=== PATIENT | male | born 1955 | race Caucasian/White ===

== ENCOUNTER → 2021-06-27 | Outpatient (CLI) | payer OTHER ==
[~2021-06-27] MED LIST: ASA81BEC PO; AZELASTINE205.5 MCG/ NARES; FLONASE 0.05%50 MCG NASAL; LISINOPRIL10 MG PO; LORAZEPAM 0.50.5 MG PO; SERTRALINE HCL25 M1 PO
== END ==
LOC: SJCVCIMAG 11:40
PROVIDERS: ATTEND Family Medicine
DX: I20.0 Unstable angina (principal); I10 Essential (primary) hypertension; R41.0 Disorientation, unspecified; F41.9 Anxiety disorder, unspecified; F98.8 Other specified behavioral and emotional disorders with onset usually occurring in childhood and adolescence; H53.8 Other visual disturbances; H26.9 Unspecified cataract; M54.2 Cervicalgia; F41.1 Generalized anxiety disorder; G47.00 Insomnia, unspecified; R06.00 Dyspnea, unspecified; R11.0 Nausea; R51.9 Headache, unspecified; Z72.89 Other problems related to lifestyle; Z79.899 Other long term (current) drug therapy; Z88.0 Allergy status to penicillin; Z88.8 Allergy status to other drugs, medicaments and biological substances

== ENCOUNTER → 2021-07-01 | Outpatient (CLI) | payer OTHER ==
[~2021-07-01] VITALS: Ht 177.8 cm; Wt 94.1 kg
[2021-07-01 10:23] LABS: HEMATOCRIT 41.9 % (42.0-52.0); MCH 32.6 pg (26.0-34.0); MCHC 33.4 g/dL (28.0-37.0); MCV 97.7 fL (80.0-100.0); RBC 4.29 mil/uL (4.50-6.00); RDW 13.3 % (10.5-14.5); WBC 4.2 thou/uL (4.0-11.0)
[2021-07-01 10:29] VITALS: BP 102/65
[2021-07-01 10:32] LABS: CALCIUM 8.5 mg/dL (8.5-10.1); POTASSIUM 4.4 mmol/L (3.5-5.1)
--- NOTE | 2021-07-14 14:59 | CATHLAB ---
[facility] [place] [address] INVASIVE PROCEDURE REPORT Name: NEIGHBORS,KYLER Grady Room #: REG ANGELLAMary Bajwa#: [id number] Admission: 07/01/21 Attend Phys: Sylvester Davies Discharge: Date of : 53 Report #: [id number] THIS REPORT FOR: cc: Art Perry Louis D. DO Lammoglia, Francisco J. MD ~ APPROVED REPORT Study performed: 07/01/2021 14:45:27 Patient Details Patient Status: Out-Patient Room #: The patient is a 66 year-old male Event Personnel Sylvester Davies Pasting Inspector, Mera Hill RTR Monitor, Teresa Garnett Wright, Sarah RN lump machine operator Performed Art Access - R femoral artery* Left Heart Cath w/or w/o Coronaries [id number] [facility] Hemostasis with Manual pressure 16033 Initial Mod Sed Same Phys/QHP Gr [id number] Mod Sed Same Phys/QHP Ea [id number], supervision of conscious sedation Indication Dyspnea, Positive stress test, Chest pain Procedure Narrative The Right Groin^ was infiltrated with 1% Lidocaine subcutaneous anesthesia. A PINNACLE 4FR Sheath #[id number] sheath was inserted into the RFA^. Coronary angiography was performed using coronary diagnostic catheters. The right coronary system was accessed and visualized with a JR4 catheter. The left coronary system was accessed and visualized with a JL4 catheter. The left ventricle was accessed and visualized with a PIGTAIL catheter. Hemostasis was obtained with manual pressure following sheath removal without any complications. The patient tolerated the procedure well and there were no complications associated with the procedure. There was no hematoma. Intraoperative Conscious Sedation Sedation start time: 14:59 Case end Time: 15:23 Versed 2 mg [facility] [address] [place] [address] INVASIVE PROCEDURE REPORT Name: KATERINEKYLER Grady Room #: [facility].#: [id number] Admission: 07/01/21 Attend Phys: Sylvester Batista Discharge: Date of : 53 Report #: [id number] Fluoro Time: 2.30 minutes Dose: DAP 5412.40 cGycm2 754 mGy Contrast Type and Amount: Omnipaque 40 ml Coronary Angiography The patient's coronary anatomy is left dominant. Diagnostic Cath Left Main Moderate-caliber vessel normal origin bifurcates left into descending left circumflex free of high-grade disease LAD Moderate caliber type III vessel with course in the interventricular sulcus giving rise to diagonal and septal branches. It courses in things towards the apex Hoxsie apex and terminates in posterior aspect of left ventricle. No significant obstructive lesions or irregularities are noted. Diagonal 1 Small caliber vessel coursing on the anterolateral wall free of high-grade disease Diagonal 2 Diminutive size vessel without significant lesion Diagonal 3 Diminutive size vessel without significant lesion Circumflex Moderate caliber dominant vessel which courses in the AV groove giving rise to a small first marginal branch continues on giving rise to a moderate caliber marginal branch and proceeds posteriorly giving rise to a cluster of posterior wall branches which serve as a posterior descending artery. No high-grade lesions are noted OM1 Small caliber vessel significant stenosis OM2 Moderate caliber vessel significant high-grade lesions noted OM3 Diminutive size vessels without significant lesion L PDA Small caliber vessel without high-grade lesions Right Coronary Small caliber vessel normal origin proceeds in the AV groove gives rise to atrioventricular branches. Terminating before reaching the crux of the heart Left Ventriculography Left Ventriculography was not performed. Hemodynamics The aortic pressure is 120/65 mmHg with a mean of 91 mmHg. The left ventricular pressure is 138/6 mmHg with a mean of mmHg. The left ventricular end diastolic pressure is 21 mmHg. Conclusion 1. Essentially normal coronary arteries [facility] [email or web address] [address] INVASIVE PROCEDURE REPORT Name: KYLER GARCIAS Room #: REG CL [facility]#: [id number] Admission: 07/01/21 Attend Phys: Sylvester Batista Discharge: Date of : 53 Report #: [id number] 2. Normal hemodynamics 3. No wall motion normalities on hand-injection LV Recommendations Cardiac Risk Reduction Program Pursue other etiologies for his symptomatology <ELECTRONICALLY SIGNED> By: Sylvester Davies MD 07/14/21 1459 58 58 Sylvester Davies MD /INF
== END | disposition home or self-care (01) ==
LOC: CATH 06:29
PROVIDERS: ATTEND Internal Medicine
DX: R07.9 Chest pain, unspecified (principal); I25.10 Atherosclerotic heart disease of native coronary artery without angina pectoris; R94.39 Abnormal result of other cardiovascular function study; R06.00 Dyspnea, unspecified; I10 Essential (primary) hypertension; G47.30 Sleep apnea, unspecified; Z98.890 Other specified postprocedural states; Z79.899 Other long term (current) drug therapy; Z82.49 Family history of ischemic heart disease and other diseases of the circulatory system; Z88.0 Allergy status to penicillin; Z88.8 Allergy status to other drugs, medicaments and biological substances

== ENCOUNTER → 2021-07-08 | Outpatient (CLI) | payer OTHER | LOC: SJCVC 07-05 11:42 → SJCVCIMAG 07:33 → SJCVC 15:35 → SJCVCIMAG 15:55 | PROVIDERS: ATTEND Internal Medicine | DX: I07.1 Rheumatic tricuspid insufficiency (principal); R06.00 Dyspnea, unspecified; I77.819 Aortic ectasia, unspecified site; I10 Essential (primary) hypertension; I20.9 Angina pectoris, unspecified; R41.0 Disorientation, unspecified ==

== ENCOUNTER → 2021-07-29 | Outpatient (CLI) | payer OTHER | LOC: SJCVC 14:15 | PROVIDERS: ATTEND Internal Medicine | DX: R07.9 Chest pain, unspecified (principal); R51.9 Headache, unspecified; G89.29 Other chronic pain; I10 Essential (primary) hypertension; F41.9 Anxiety disorder, unspecified; Z88.0 Allergy status to penicillin; Z88.8 Allergy status to other drugs, medicaments and biological substances; Z79.899 Other long term (current) drug therapy; Z72.89 Other problems related to lifestyle ==